=== PATIENT | female | born 1945 | race Caucasian/White ===

== ENCOUNTER 2019-06-19 09:35 | Emergency (ER) | payer MEDICARE, OTHER ==
--- NOTE | 2019-06-19 10:17 | ER Document Report ---
ED General - General Chief Complaint: Ankle Injury Stated Complaint: LEFT FOOT INJURY Time Seen by Provider: 06/19/19 10:09 Primary Care Provider: MALIK IGLESIAS MD [ACTIVE PROVISIONAL STAFF] - Follow up as needed LANCE VELIZ MD [EMERITUS] - Follow up as needed TRAVEL OUTSIDE OF THE [place] IN LAST 30 DAYS: No - HPI Patient complains to provider of: left foot ankle pain Onset: Other Onset/Duration: Sudden Quality of pain: Achy Severity: Moderate Context: 73 year old female arrives with left ankle and foot pain after passing out at home about 5 weeks ago. Seen by PCP but no xray done. Still with pain and swelling and decreased function. No knee pain. Medical workup including heart monitor has not shown a cause of passing out. She is just concerned about the ankle/ foot pain here. No chest pain and no sob. Exacerbated by: Denies Relieved by: Denies - Related Data Allergies/Adverse Reactions: No Known Allergies Allergy (Unverified 06/19/19 10:00) Past Medical History - Social History Smoking Status: Never Smoker Chew tobacco use (# tins/day): No Frequency of alcohol use: None Drug Abuse: None Family History: Reviewed & Not Pertinent Patient has suicidal ideation: No Patient has homicidal ideation: No Review of Systems - Review of Systems Constitutional: No symptoms reported EENT: No symptoms reported Cardiovascular: No symptoms reported Respiratory: No symptoms reported Gastrointestinal: No symptoms reported Genitourinary: No symptoms reported Female Genitourinary: No symptoms reported Musculoskeletal: No symptoms reported Skin: No symptoms reported Hematologic/Lymphatic: No symptoms reported Neurological/Psychological: No symptoms reported Physical Exam - Vital signs Vitals: Temp Pulse Resp BP Pulse Ox 98.6 F 59 L 16 157/56 H 96 06/19/19 09:38 06/19/19 09:38 06/19/19 09:38 06/19/19 09:38 06/19/19 09:38 Interpretation: Normal - General General appearance: Appears well, Alert - HEENT Head: Normocephalic, Atraumatic Eyes: Normal Pupils: PERRL - Respiratory Respiratory status: No respiratory distress Chest status: Nontender Breath sounds: Normal Chest palpation: Normal - Cardiovascular Rhythm: Regular Heart sounds: Normal auscultation Murmur: No - Abdominal Inspection: Normal Distension: No distension Bowel sounds: Normal Tenderness: Nontender Organomegaly: No organomegaly - Back Back: Normal, Nontender - Extremities General upper extremity: Normal inspection, Nontender, Normal color, Normal ROM, Normal temperature General lower extremity: Normal inspection, Tender, Normal color, Normal ROM, Normal temperature, Normal weight bearing. No: Nontender - left lateral malleolus ttp with mild - mod sts., Aayush's sign - Neurological Neuro grossly intact: Yes Cognition: Normal Orientation: AAOx4 Wendy Coma Scale Eye Opening: Spontaneous [place] Coma Scale Verbal: Oriented Wendy Coma Scale Motor: Obeys Commands [place] Coma Scale Total: 15 Speech: Normal Motor strength normal: LUE, RUE, LLE, RLE Sensory: Normal - Psychological Associated symptoms: Normal affect, Normal mood - Skin Skin Temperature: Warm Skin Moisture: Dry Skin Color: Normal Course - Re-evaluation Re-evalutation: 06/19/19 12:50 MDM 73 year old with left fibula fx. Will have her see ortho. She is currently immobilized. I do not feel she would do well with crutches and she has a walker at home that she has been using. She understands directions. She was offered stronger pain medicine than she is taking (tylneol and ibuprofen). - Vital Signs Vital signs: Temp Pulse Resp BP Pulse Ox 98.0 F 57 L 18 148/52 H 99 06/19/19 13:23 06/19/19 13:23 06/19/19 13:23 06/19/19 13:23 06/19/19 13:23 Discharge - Discharge Clinical Impression: Left fibular fracture Qualifiers: Encounter type: initial encounter Fibula location: distal Fracture type: closed Fracture morphology: unspecified fracture morphology Qualified Code(s): S82.832A - Other fracture of upper and lower end of left fibula, initial encounter for closed fracture Condition: Good Disposition: HOME, SELF-CARE Instructions: Fibular Shaft Fracture ([facility]), Ice & Elevation ([facility]) Additional Instructions: Rest, ice and elevate the left ankle. See your doctor or the orthopedist you have been referred to. Please return here for any problems or any concerns. Referrals: LANCE VELIZ MD [EMERITUS] - Follow up as needed MALIK IGLESIAS MD [ACTIVE PROVISIONAL STAFF] - Follow up as needed
--- NOTE | 2019-06-19 12:17 | RADIOLOGY REPORT (SQ) ---
EXAM DESCRIPTION: ANKLE LEFT COMPLETE COMPLETED DATE/TIME: 06/19/2019 12:05 pm REASON FOR STUDY: fall/ pain COMPARISON: None. NUMBER OF VIEWS: Three views. TECHNIQUE: AP, lateral, and oblique radiographic images acquired of the left ankle. LIMITATIONS: None. FINDINGS: MINERALIZATION: Normal. BONES: Acute spiral fracture distal left fibula just proximal to the ankle mortise. No gross disrupt ion of the ankle mortise. JOINTS: Tibiotalar ankle joint effusion SOFT TISSUES: Diffuse medial and lateral soft tissue swelling. No foreign body. OTHER: No other significant finding. IMPRESSION: Acute spiral fracture left distal fibula, just proximal to the ankle mortise. TECHNICAL DOCUMENTATION: JOB ID: [id number] [employer]- All Rights Reserved Reading location - IP/workstation name: [email or web address]
--- NOTE | 2019-06-19 12:18 | RADIOLOGY REPORT (SQ) ---
EXAM DESCRIPTION: FOOT LEFT COMPLETE COMPLETED DATE/TIME: 06/19/2019 12:05 pm REASON FOR STUDY: fall/ injury COMPARISON: Ankle films same date NUMBER OF VIEWS: Three views. TECHNIQUE: AP, lateral and oblique radiographic images acquired of the left foot. LIMITATIONS: None. FINDINGS: MINERALIZATION: Normal. BONES: Acute spiral fracture distal left fibula is at the edge of the field of view. Accessory navic ular bone. No acute fractures over the bones of the foot. Small plantar calcaneal spur. JOINTS: Ankle joint effusion SOFT TISSUES: Medial and lateral ankle swelling. No radiopaque foreign body OTHER: No other significant finding. IMPRESSION: Spiral fracture distal fibula at the edge of the field of view. No acute fracture, bones of the left foot TECHNICAL DOCUMENTATION: JOB ID: [id number]- All Rights Reserved Reading location - IP/workstation name: [email or web address]
[2019-06-19 13:26] VITALS: BP 148/52
== END 2019-06-19 13:28 | disposition home or self-care (01) ==
LOC: ER 09:35
DX: S82.442A Displaced spiral fracture of shaft of left fibula, initial encounter for closed fracture (principal); M25.572 Pain in left ankle and joints of left foot; M79.672 Pain in left foot; W19.XXXA Unspecified fall, initial encounter; Y92.007 Garden or yard of unspecified non-institutional (private) residence as the place of occurrence of the external cause
CPT/HCPCS: 99283